=== PATIENT | female | born 1985 | race Caucasian/White ===

== ENCOUNTER 2017-04-07 06:24 | Emergency (ER) | payer OTHER ==
[2017-04-07 07:08] VITALS: BP 136/72; PULSE 71; TEMP 98.3; BMI 30.2
[2017-04-07] MEDS ORDERED: SODIUM CHLORIDE FOR INHALATION 3 ML VIAL.NEB IH ONE (07:35)
--- NOTE | 2017-04-07 07:39 | PDOC ---
History of Present Illness - General Chief Complaint: Nausea/Vomiting Stated Complaint: VOMITING X2 WEEKS Time Seen by Provider: 04/07/17 07:28 History Source: Patient Exam Limitations: No Limitations - History of Present Illness Initial Comments: 04/07/17 07:34 32 yr female with c/o "something stuck in my throat" for one week after she had URI. Pt denies fever, states she was unable to keep anything down until last night was able to keep small pieces of chicken down. no diff breathing, denies sore throat, no medical history. Severity: mild Associated Symptoms: reports: nausea/vomiting. denies: denies symptoms, chest pain, cough, diaphoresis, fever/chills, headaches, loss of appetite, rash Past History - Past Medical History Allergies/Adverse Reactions: Allergies Allergy/AdvReac Type Severity Reaction Status Date / Time No Known Allergies Allergy Verified 04/07/17 07:08 COPD: No Other medical history: NONE - Surgical History Cholecystectomy: Yes - Suicide/Smoking/Psychosocial Hx Smoking History: Never smoked Hx Alcohol Use: No Drug/Substance Use Hx: No Substance Use Type: None Review of Systems - Review of Systems Able to Perform ROS?: Yes Is the patient limited Prydeinig proficient: No Constitutional: No: Symptoms Reported HEENTM: Yes: Symptoms Reported Respiratory: No: Symptoms reported Cardiac (ROS): No: Symptoms Reported ABD/GI: No: Symptoms Reported : No: Symptoms Reported Musculoskeletal: No: Symptoms Reported Integumentary: No: Symptoms Reported Neurological: No: Symptoms reported *Physical Exam - Vital Signs Last Vital Signs Temp Pulse Resp BP Pulse Ox 98.3 F 71 20 136/72 99 04/07/17 07:06 04/07/17 07:06 04/07/17 07:06 04/07/17 07:06 04/07/17 07:06 - Physical Exam General Appearance: Yes: Nourished, Appropriately Dressed HEENT: positive: EOMI, DVE, TMs Normal, Pharynx Normal. negative: Muffled/ Hoarse voice, Pharyngeal Erythema, Nasal Congestion Neck: positive: Supple. negative: Normal Thyroid, Lymphadenopathy (R), Lymphadenopathy (L) Respiratory/Chest: positive: Lungs Clear, Normal Breath Sounds Cardiovascular: positive: Regular Rhythm, Regular Rate Gastrointestinal/Abdominal: positive: Normal Bowel Sounds, Soft Musculoskeletal: positive: Normal Inspection Extremity: positive: Normal Capillary Refill, Normal Inspection, Normal Range of Motion Integumentary: positive: Normal Color, Dry, Warm Neurologic: positive: Fully Oriented, Alert, Normal Mood/Affect, Normal Response , Motor Strength 5/5 Medical Decision Making - Medical Decision Making 04/07/17 07:38 cc: diff swallowing with vomiting after swallowing food on and off pt was able to tolerate pieces of chicken last night no other complaints will r/o prgnancy soft tissue neck r/o fb saline nebulizer 04/07/17 07:43 04/07/17 08:04 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 *DC/Admit/Observation/Transfer Diagnosis at time of Disposition: Difficulty in swallowing Qualifiers: Dysphagia type: esophageal phase Qualified Code(s): R13.10 - Dysphagia, unspecified - Discharge Dispostion Disposition: ELOPED Condition at time of disposition: Good - Referrals Referrals: Daniel Mccarthy [Primary Care Provider] - - Patient Instructions - Post Discharge Activity
== END 2017-04-07 08:05 | disposition left against medical advice (07) ==
LOC: JER 06:24
DX: R13.10 Dysphagia, unspecified (principal)
CPT/HCPCS: 99281-25

== ENCOUNTER 2018-05-24 14:25 | Inpatient (IN) | payer OTHER ==
[2018-05-24] MEDS ORDERED: PROMETHAZINE HCL 25 MG/1 ML VIAL ONE (14:42)
[2018-05-24] MEDS ORDERED: BUTORPHANOL TARTRATE 1 MG/ML VIAL ONE (14:42)
[2018-05-24 14:52] VITALS: BMI 30.4
[2018-05-24] MEDS ORDERED: OXYTOCIN 20 UNITS in 0.9% NS 20 UNIT/1,000 ML INFUS.BAG IV ONE ×2 (15:07→18:04)
[2018-05-24] MEDS ORDERED: LIDOCAINE HCL 1% PRESERVATIVE FREE - 30ML VIAL ONE (15:07)
[2018-05-24] MEDS ORDERED: PROMETHAZINE HCL 25 MG/1 ML VIAL IVPB ONE (15:15)
[2018-05-24] MEDS ORDERED: BUTORPHANOL TARTRATE 1 MG/ML VIAL IVPB ONE (15:15)
[2018-05-24] MEDS ORDERED: ELECTROLYTE-148 SOLN 1,000 ML IV SCH (15:15)
[2018-05-24 15:29] LABS: BASO % 0.6 % (0-2.0); EOS % 0.2 % (0-4.5); HEMATOCRIT 34.1 % (32.4-45.2); HEMOGLOBIN 11.1 GM/dL (10.7-15.3); LYMPH % 28.2 % (8-40); MCH 22.2 pg (25.7-33.7); MCHC 32.7 g/dl (32.0-36.0); MEAN CELL VOLUME 67.8 fl (80-96); MEAN PLT VOLUME 10.9 fl (7.5-11.1); MONO % 7.6 % (3.8-10.2); NEUT % 63.4 % (42.8-82.8); PLATELET COUNT 315 K/MM3 (134-434); RBC 5.03 M/mm3 (3.60-5.2); RDW 17.8 % (11.6-15.6); WHITE BLOOD COUNT 5.9 K/mm3 (4.0-10.0)
[2018-05-24 15:43] LABS: INR 0.95 (0.83-1.09); PROTHROMBIN TIME (PATIENT) 11.2 SEC (9.7-13.0)
[2018-05-24 15:45] LABS: ACTIVATED PTT 28.9 SECONDS (25.2-36.5)
[2018-05-24 15:55] LABS: ANION GAP 13 MMOL/L (8-16); BLOOD UREA NITROGEN 8 mg/dL (7-18); CALCIUM 8.8 mg/dL (8.5-10.1); CHLORIDE 104 mmol/L (98-107); CO2 20 mmol/L (21-32); CREATININE 0.9 mg/dL (0.55-1.3); GLUCOSE,RANDOM 71 mg/dL (74-106); POTASSIUM 4.3 mmol/L (3.5-5.1); SODIUM 136 mmol/L (136-145)
[2018-05-24] MEDS: OXYTOCIN 20 UNITS in 0.9% NS 20 UNIT/1,000 ML INFUS.BAG IV SCH ×2 (16:00→18:05)
[2018-05-24 16:26] LABS: ARTERIAL BLOOD GAS BASE EXCESS 0.2 meq/l (-2-2); ARTERIAL BLOOD GAS PCO2 44.3 mmHg (35-45); ARTERIAL BLOOD GAS pH 7.37 (7.35-7.45)
[2018-05-24 16:50] LABS: ARTERIAL BLOOD GAS PO2 20.8 mmHg (80-100)
[2018-05-24 16:51] LABS: ARTERIAL BLD GAS O2 SATURATION 44.1 % (90-98.9)
[2018-05-24 16:52] LABS: VENOUS PC02 35.8 mmHg (38-52); VENOUS PH 7.42 (7.32-7.42); VENOUS PO2 36.9 mmHg (28-48)
[2018-05-24] MEDS ORDERED: ACETAMINOPHEN 325 MG TABLET (FP) ONE (19:35)
[2018-05-24] MEDS ORDERED: IBUPROFEN 600 MG TABLET (FP) PO PRN ×2 (19:35→20:21)
[2018-05-24] MEDS ORDERED: IBUPROFEN 600 MG TABLET (FP) PO ONE (19:35)
[2018-05-24] MEDS ORDERED: ACETAMINOPHEN 325 MG TABLET (FP) PO PRN ×2 (19:36→20:21)
[2018-05-24] MEDS ORDERED: SENNOSIDES/DOCUSATE COMBO (SENNA PLUS) TABLET (UD) PO PRN (19:37)
[2018-05-24] MEDS ORDERED: BISACODYL 10 MG SUPP.RECT RC PRN ×2 (19:37→20:21)
[2018-05-24] MEDS ORDERED: WITCH HAZEL 50% (TUCKS) 40 PAD/JAR PAD TP PRN ×2 (19:38→20:21)
[2018-05-24] MEDS ORDERED: BENZOCAINE 28 GM HEMORRHOIDAL OINTMENT TP PRN ×2 (19:38→20:21)
[2018-05-24] MEDS ORDERED: BENZOCAINE 20% 57 GM BOTTLE TP PRN ×2 (19:38→20:21)
[2018-05-24] MEDS ORDERED: METHYLERGONOVINE MALEATE 0.2 MG/1 ML AMP IM PRN ×2 (19:39→20:21)
--- NOTE | 2018-05-24 20:29 | HP ---
Past Medical History - Primary Care Physician PCP:: Camden Rodriges - Admission Chief Complaint: 33yo P2 female presented in spontaneous active labor at EGA 38w5d History of Present Illness: Normal Spont labor Prior LEEP Vag GBS negative History Source: Patient, Medical Record Limitations to Obtaining History: No Limitations - Past Medical History LAB ASST: No: Alzheimer's, CVA, Dementia, Migraine, Multiple Sclerosis, Peripheral Neuropathy, Parkinson's, Seizure, Syncope, TIA, Vertigo, Other Cardiovascular: No: AFIB, Aneurysm, Aortic Insufficiency, Aortic Stenosis, CAD, CHF, Deep Vein Thrombosis, HTN, Hyperlipdemia, [place], Mitral Insufficiency, Mitral Stenosis, Murmur, Pulmonary Hypertension, Other Pulmonary: No: Asthma, Bronchitis, Cancer, COPD, O2 Dependent, Pneumonia, Previously Intubated, Pulmonary Embolus, Pulmonary Fibrosis, Sleep Apnea, Other Gastrointestinal: No: Ascites, Cancer, Constipation, Crohn's Disease, Diverticulitis, Diverticulosis, Esophageal Varices, Gastritis, GERD, GI Bleed, Hemorrhoids, Hiatal Hernia, Inflamatory Bowel Disease, Irritable Bowel Disease, Pancreatitis, Peptic Ulcer Disease, Ulcerative Colitis, Other Renal/: No: Renal Failure, Renal Inusuff, BPH, Cancer, Hematuria, Hemodialysis , Neurogenic Bladder, Renal Calculi, UTI, Other Reproductive: Yes: Other (LEEP) ...: 3 ...Para: 2 () ...Term: 2 ...: 0 ...Spon : 0 ...Induced : 0 ...Multiple Gestation: 0 ...LMP: 08/25/17 ... Weeks Gestation by Dates: 38.6 ...EDC by Dates: 06/01/18 ...EDC by Sono: 06/02/18 Heme/Onc: No: Anemia, B12 Deficiency, Bleeding Disorder, Cancer, Current Chemotherapy, Current Radiation Therapy, Hemochromatosis, Hypercoaguable State, Myeloproliferative Synd, Sickle Cell Disease, Sickle Cell Trait, Thrombocytopenia, Other Infectious Disease: No: AIDS, C-Diff, Herpes Zoster, HIV, MRSA, STD's, Tuberculosis, VREF, Other Psych: No: Addictions, Anxiety, Bipolar, Depression, Panic, Psychosis, Schizophrenia, Other Musculoskeletal: No: Bursitis, Chronic low back pain, Hemiparesis, Hemiplegia, Osteoarthritis, Paraplegia, Other Rheumatology: No: Fibromyalgia, Gout, Lupus, Rheumatoid Arthritis, Sarcoidosis, Vasculitis, Other ENT: No: Allergic Rhinitis, Sinusitis, Other Endocrine: No: [place]'s Disease, [place]'s Disease, Diabetes Insipidus, Diabetes Mellitus, Hyperparathyroidism, Hyperthyroidism, Hypothyroidism, Osteopenia, SIADH, Other Dermatology: No: Basal Cell, Cellulitis, Eczema, Melanoma, Psoriasis, Squamous Cell, Other - Past Surgical History Past Surgical History: Yes: Cholecystectomy Hx Myomectomy: No Hx Transabdominal Cerclage: No Additional Surgical History: LEEP - Smoking History Smoking history: Never smoked Have you smoked in the past 12 months: No - Alcohol/Substance Use Hx Alcohol Use: No History of Substance Use: reports: None - Social History Usual Living Arrangement: Yes: With Spouse, With Child ADL: Independent History of Recent Travel: No Home Medications - Allergies Allergies/Adverse Reactions: Allergies Allergy/AdvReac Type Severity Reaction Status Date / Time No Known Allergies Allergy Verified 05/24/18 14:52 - Home Medications Home Medications: Ambulatory Orders Ondansetron HCl [Zofran] 4 mg PO DAILY PRN 04/20/18 Pnv No.95/Ferrous Fum/Folic AC [ Vitamin Tablet] 1 each PO DAILY Family Disease History - Family Disease History Family Disease History: Heart Disease: Grandparent, Mother Review of Systems - Review of Systems Constitutional: reports: Other (active labor) Eyes: reports: No Symptoms HENT: reports: No Symptoms Neck: reports: No Symptoms Cardiovascular: reports: No Symptoms Respiratory: reports: No Symptoms Gastrointestinal: reports: No Symptoms Genitourinary: reports: No Symptoms Breasts: reports: No Symptoms Reported Musculoskeletal: reports: No Symptoms Integumentary: reports: No Symptoms Neurological: reports: No Symptoms Endocrine: reports: No Symptoms Hematology/Lymphatic: reports: No Symptoms Psychiatric: reports: No Symptoms Physical Exam - Maternity Vital Signs: Vital Signs Temperature 98.3 F 05/24/18 16:45 Pulse Rate 70 05/24/18 16:45 Respiratory Rate 20 05/24/18 16:45 Blood Pressure 110/65 05/24/18 16:45 O2 Sat by Pulse Oximetry (%) Constitutional: Yes: Well Nourished, No Distress, Calm Eyes: Yes: WNL, Conjunctiva Clear HENT: Yes: WNL, Atraumatic, Normocephalic Neck: Yes: WNL, Supple, Trachea Midline Cardiovascular: Yes: WNL, Regular Rate and Rhythm Lungs: Clear to auscultation, Normal air movement - Abdominal Exam/OB Fundal Height: 39 Number of Fetuses: Single Presentation: Vertex Contractions: Yes Regularity: Regular Intensity: Mod/Strong Monitor Mode: External Heart Rate Location: Midline Category: I Accelerations: Non-Uniform Decelerations: None - Vaginal Exam/OB Vaginal Bleediing: No Dilatation (cm): 10 Effacement (%): 100 Amniotic Membrane Status: Ruptured (in 2nd stage) Amniotic Fluid: Yes: Meconium Stained Meconium: Moderate Presentation: Vertex/Position Station: +1 - Physical Exam Musculoskeletal: Yes: WNL Extremities: Yes: WNL Edema: No Edema: LLE: Trace, RLE: Trace Integumentary: Yes: WNL Deep Tendon Reflex Grade: Normal +2 ...Motor Strength: WNL Psychiatric: Yes: WNL, Alert, Oriented - Labs Lab Results: CBC, BMP 05/24/18 14:40 05/24/18 14:40 Hemorrhage Risk Assessment - Risk Factors Medium Risk Factors: Yes: None High Risk Factors: Yes: None Risk Score: 1 Risk Level: Medium Risk Assessment/Plan 33yo P2 female presented in spontaneous active labor at EGA 38w5d. Pt present at 7cm cervical dilation. She was n oted to have a Category I tracing. The pt declined epidural and requested IV sedation. The pt progressed to 10cm, AROM was done, and had a normal vaginal delivery w/o complications.
[2018-05-24] MEDS ORDERED: DEXTROSE 5%-LACTATED RINGERS 1,000 ML IV SCH (20:30)
[2018-05-24] MEDS ORDERED: OXYTOCIN 20 UNITS in 0.9% NS 20 UNIT/1,000 ML INFUS.BAG IV SCH (20:30)
--- NOTE | 2018-05-24 20:32 | PN ---
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 w/o complications.
[2018-05-25 07:24] LABS: BASO % 0.4 % (0-2.0); EOS % 0.3 % (0-4.5); HEMATOCRIT 27.8 % (32.4-45.2); HEMOGLOBIN 8.4 GM/dL (10.7-15.3); LYMPH % 29.9 % (8-40); MCHC 30.4 g/dl (32.0-36.0); MEAN PLT VOLUME 10.4 fl (7.5-11.1); MONO % 8.8 % (3.8-10.2); NEUT % 60.6 % (42.8-82.8); PLATELET COUNT 225 K/MM3 (134-434); RBC 4.02 M/mm3 (3.60-5.2); RDW 17.7 % (11.6-15.6)
[2018-05-25] MEDS ORDERED: FERROUS SO4 325 MG TABLET (FP) PO ONE (09:01)
[2018-05-25] MEDS: PRENATAL VITAMINS W/ FOLIC ACID TABLET (FP) PO SCH (09:54)
[2018-05-25 12:21] LABS: ANISOCYTOSIS 2+; MACROCYTOSIS 0; OVALOCYTE 1+; PLATELET ESTIMATE NORMAL
--- NOTE | 2018-05-25 14:28 | PN ---
Post Progress Note - Subjective Subjective: Patient without acute complaints. Reports tolerating oral intake without nausea or vomiting. Ambulating without dizziness. Denies fevers or chills. Pain well controlled with oral pain medication. without issue. Passing flatus, no BM. Post Day: 1 Type of Delivery: Vital Signs: Vital Signs Temperature 97.8 F 05/25/18 14:00 Pulse Rate 69 05/25/18 14:00 Respiratory Rate 20 05/25/18 14:00 Blood Pressure 122/58 L 05/25/18 14:00 O2 Sat by Pulse Oximetry (%) Breast Exam: Yes: Soft Uterus: Yes: Fundus Firm, Fundus below umbilicus, Non-tender Abdomen/GI: Yes: Abdomen soft, Passing flatus, Tolerating PO Lochia: Yes: Rubra Lochia, amount: Small Extremities: Yes: Calves non-tender Perineum: Yes: Intact Activity: Ambulating - Labs Labs: CBC WBC 8.0 K/mm3 (4.0-10.0) 05/25/18 06:30 RBC 4.02 M/mm3 (3.60-5.2) 05/25/18 06:30 Hgb 8.4 GM/dL (10.7-15.3) L 05/25/18 06:30 Hct 27.8 % (32.4-45.2) L D 05/25/18 06:30 MCV 69.0 fl (80-96) L 05/25/18 06:30 MCH 21.0 pg (25.7-33.7) L 05/25/18 06:30 MCHC 30.4 g/dl (32.0-36.0) L 05/25/18 06:30 RDW 17.7 % (11.6-15.6) H 05/25/18 06:30 Plt Count 225 K/MM3 (134-434) D 05/25/18 06:30 MPV 10.4 fl (7.5-11.1) 05/25/18 06:30 Absolute Neuts (auto) 4.8 K/mm3 (1.5-8.0) 05/25/18 06:30 Neutrophils % 60.6 % (42.8-82.8) 05/25/18 06:30 Lymphocytes % 29.9 % (8-40) 05/25/18 06:30 Monocytes % 8.8 % (3.8-10.2) 05/25/18 06:30 Eosinophils % 0.3 % (0-4.5) 05/25/18 06:30 Basophils % 0.4 % (0-2.0) 05/25/18 06:30 Nucleated RBC % 0 % (0-0) 05/25/18 06:30 Hypochromia 1+ 05/25/18 06:30 Platelet Estimate Normal 05/25/18 06:30 Polychromasia 1+ 05/25/18 06:30 Poikilocytosis 1+ 05/25/18 06:30 Anisocytosis 2+ 05/25/18 06:30 Microcytosis 2+ 05/25/18 06:30 Macrocytosis 0 05/25/18 06:30 Ovalocytes 1+ 05/25/18 06:30 [place] Cells 1+ 05/25/18 06:30 Assessment/Plan 33yo P3 s/p , doing well stable, afebrile. Asymptomatic for anemia. care instructions reviewed. Continue routine care. Ambulation encouraged Discharge instruction reviewed.
--- NOTE | 2018-05-25 14:36 | DS ---
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.Post : Yes: Uterus firm, Uterus non-tender, Slight lochia rubra Breast(s): Yes: WNL Musculoskeletal: Yes: WNL Extremities: Yes: WNL Edema: No Edema: LLE: Trace, RLE: Trace Integumentary: Yes: WNL Neurological: Yes: WNL, Alert, Oriented ...Motor Strength: WNL Psychiatric: Yes: WNL, Alert, Oriented Labs: CBC, BMP 05/25/18 06:30 05/24/18 14:40 Delivery - Delivery Vaginal Delivery: No Problems, Spontaneous Type of Anesthesia: Local Episiotomy/Laceration: Vaginal Extension/lac, 1st degree EBL (cc): 300 Delivery, Single - Stages of Labor Date 1st Stage Initiatied: 05/24/18 Time 1st Stage Initiated: 11:30 Date 2nd Stage Initiated: 05/24/18 Time 2nd Stage Initiated: 15:35 Date of Delivery: 05/24/18 Time of Delivery: 15:57 Time Placenta Delivered: 16:00 Placenta: Yes: Spontaneous, Normal Configuration - 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 w/o complications. Discharge Summary Reason For Visit: LABOR ADMISSION Spont labor at term Procedures: Principal: Hospital Course: Normal delivery and course Condition: Good - Instructions Diet, Activity, Other Instructions: Physical activity Resume your normal everyday activity as tolerated no heavy lifting or exercise until seen by your surgeon. You may walk unlimited garry of and climb stairs. You may resume driving the car when you feel safe and comfortable behind the wheel. No sexual activity as instructed. Wound care If you have a bandage, leave it on, and keep dry for 48-72 hours. After that time discard the outer bandage. If they are tapes on the skin under the out of bandage leave them in place. They will peel off in the next 7 to 10 days. Do Not Peel them off. You may shower the day after surgery. If there are tapes present on the skin, you may shower over them. Diet There are no dietary restrictions. Eat healthy, high-fiber foods. Drink 6 to 8 glasses of liquid each day. This will assist in keeping your bowels are regular. Pain management You may take Tylenol or acetaminophen or Ibuprofen (for example, Motrin, Advil etc.) from my pain prescription medication is ordered should be taken as prescribed for moderate to severe pain. Call MD for any of the following: Severe pain not relieved by medication Fever of 101 or higher Excessive bleeding or drainage on dressing Inability to urinate Referrals: Paige Austin MD [Staff Physician] - Disposition: HOME - Home Medications Comprehensive Discharge Medication List: Ambulatory Orders Ondansetron HCl [Zofran] 4 mg PO DAILY PRN 04/20/18 Pnv No.95/Ferrous Fum/Folic AC [ Vitamin Tablet] 1 each PO DAILY
[2018-05-25] MEDS ORDERED: SENNOSIDES/DOCUSATE COMBO (SENNA PLUS) TABLET (UD) PO PRN (22:00)
--- NOTE | 2018-05-26 08:05 | PN ---
Post Progress Note - Subjective Subjective: Patient without acute complaints. Reports tolerating oral intake without nausea or vomiting. Ambulating without dizziness. Denies fevers or chills. Pain well controlled with oral pain medication. without difficulty. Passing flatus. Post Day: 2 Type of Delivery: Vital Signs: Vital Signs Temperature 98.4 F 05/25/18 20:15 Pulse Rate 77 05/25/18 20:15 Respiratory Rate 18 05/25/18 20:15 Blood Pressure 116/64 05/25/18 20:15 O2 Sat by Pulse Oximetry (%) Breast Exam: Yes: Engorged Uterus: Yes: Fundus Firm, Fundus below umbilicus Abdomen/GI: Yes: Abdomen soft, Passing flatus, Tolerating PO. No: Abdominal Distention, Tender Lochia: Yes: Serosa Lochia, amount: Small Extremities: Yes: Calves non-tender Activity: Ambulating - Labs Labs: CBC WBC 8.0 K/mm3 (4.0-10.0) 05/25/18 06:30 RBC 4.02 M/mm3 (3.60-5.2) 05/25/18 06:30 Hgb 8.4 GM/dL (10.7-15.3) L 05/25/18 06:30 Hct 27.8 % (32.4-45.2) L D 05/25/18 06:30 MCV 69.0 fl (80-96) L 05/25/18 06:30 MCH 21.0 pg (25.7-33.7) L 05/25/18 06:30 MCHC 30.4 g/dl (32.0-36.0) L 05/25/18 06:30 RDW 17.7 % (11.6-15.6) H 05/25/18 06:30 Plt Count 225 K/MM3 (134-434) D 05/25/18 06:30 MPV 10.4 fl (7.5-11.1) 05/25/18 06:30 Absolute Neuts (auto) 4.8 K/mm3 (1.5-8.0) 05/25/18 06:30 Neutrophils % 60.6 % (42.8-82.8) 05/25/18 06:30 Lymphocytes % 29.9 % (8-40) 05/25/18 06:30 Monocytes % 8.8 % (3.8-10.2) 05/25/18 06:30 Eosinophils % 0.3 % (0-4.5) 05/25/18 06:30 Basophils % 0.4 % (0-2.0) 05/25/18 06:30 Nucleated RBC % 0 % (0-0) 05/25/18 06:30 Hypochromia 1+ 05/25/18 06:30 Platelet Estimate Normal 05/25/18 06:30 Polychromasia 1+ 05/25/18 06:30 Poikilocytosis 1+ 05/25/18 06:30 Anisocytosis 2+ 05/25/18 06:30 Microcytosis 2+ 05/25/18 06:30 Macrocytosis 0 05/25/18 06:30 Ovalocytes 1+ 05/25/18 06:30 [place] Cells 1+ 05/25/18 06:30 Assessment/Plan 33 yo PPD # 2 s/p , afebrile, vital signs stable, doing well 1. Patient stable for discharge home today. 2. Patient encouraged to contact MD for: - Severe pain not controlled by oral pain medication - Fevers or chills - Nausea or vomiting, intolerance of oral intake 3. Patient to follow up in office in 4-6 weeks for visit
[2018-05-26 08:45] VITALS: BP 107/66; PULSE 67; TEMP 97.8
[2018-05-26] MEDS: PRENATAL VITAMINS W/ FOLIC ACID TABLET (FP) PO SCH (09:17)
== END 2018-05-26 13:45 | disposition home or self-care (01) | DRG 807 ==
LOC: JLDR 14:25 → J3W 19:51
PROVIDERS: ADMIT Obstetrics & Gynecology; ATTEND Obstetrics & Gynecology
PROC: 10E0XZZ Delivery of Products of Conception, External Approach (ICD-10-PCS; principal; 2018-05-24)
PROC: 0HQ9XZZ Repair Perineum Skin, External Approach (ICD-10-PCS; 2018-05-24)
DX: O77.0 Labor and delivery complicated by meconium in amniotic fluid (principal); Z37.0 Single live birth; O70.0 First degree perineal laceration during delivery; Z3A.38 38 weeks gestation of pregnancy
CPT/HCPCS: 36415; 36600; 59409; 80048; 82803; 85025; 85610; 85730; 86593; 86850; 86900; 86901; 87389